=== PATIENT | female | born 1995 | race Caucasian/White ===

== ENCOUNTER 2020-09-21 13:56 | Emergency (ER) | payer SELFPAY ==
[~2020-09-21] VITALS: Ht 160 cm; Wt 68.2 kg
[2020-09-21 15:38] LABS: BASOPHILS % (AUTO) 0.4 % (0.0-2.0); EOSINOPHILS % (AUTO) 0.5 % (1.0-6.0); HEMATOCRIT 34.9 % (36-46); HEMOGLOBIN 12.1 g/dL (12.0-16.0); LYMPHOCYTES % (AUTO) 14.5 % (22.0-44.0); MEAN CORPUSCULAR HEMOGLOBIN 32.3 pg (26.0-34.0); MEAN CORPUSCULAR HGB CONC 34.6 G/dL (31.0-37.0); MEAN CORPUSCULAR VOLUME 93 fL (80-100); MONOCYTES # (AUTO) 0.8 K/uL (0.1-1.0); MONOCYTES % (AUTO) 5.9 % (2.0-9.0); NEUTROPHILS # (AUTO) 10.9 K/uL (1.8-7.7); NEUTROPHILS % (AUTO) 78.7 % (40.0-70.0); PLATELET COUNT (AUTO) 305 K/uL (150-450); RED BLOOD CELL COUNT(AUTO) 3.75 MIL/uL (4.00-5.20); RED CELL DISTRIBUTION WIDTH 14.5 % (11.5-14.5)
[2020-09-21 15:56] LABS: APPEARANCE,URINE CLOUDY (CLEAR); BILIRUBIN,URINE NEGATIVE (NEGATIVE); GLUCOSE, URINE (UA) NEGATIVE (NEGATIVE); KETONES,URINE NEGATIVE (NEGATIVE); LEUKOCYTE ESTERASE ,URINE LARGE (NEGATIVE); NITRATE,URINE NEGATIVE (NEGATIVE); OCCULT BLOOD,URINE MODERATE (NEGATIVE); PROTEIN,URINE TRACE (NEGATIVE); UROBILINOGEN,URINE 0.2 mg/dL (<=1.0)
[2020-09-21 16:26] LABS: BACTERIA,URINE Moderate /HPF (None Seen); SQUAMOUS EPITHELIAL CELL,UR Many /LPF (None Seen); WBC,URINE 51-100 /HPF (0-5); YEAST,URINE Few /HPF (None Seen)
[2020-09-21 16:45] VITALS: BP 127/74
[2020-09-21] MEDS ORDERED: CefTRIAXone SODIUM 1 GM/VIAL IM ONE (16:45)
[2020-09-21] MEDS ORDERED: LIDOCAINE/PF 1% 2 ML VIAL IM ONE (16:45)
== END 2020-09-21 16:56 | disposition home or self-care (01) ==
LOC: EMS 14:02
DX: O23.42 Unspecified infection of urinary tract in pregnancy, second trimester (principal); O9A.312 Physical abuse complicating pregnancy, second trimester; J45.909 Unspecified asthma, uncomplicated; F15.90 Other stimulant use, unspecified, uncomplicated; F11.90 Opioid use, unspecified, uncomplicated; Z87.891 Personal history of nicotine dependence
CPT/HCPCS: 36415; 76805; 81001; 84702; 85025; 86901; 87086; 96372; 99284; J0696; J3490